=== PATIENT | male | born 1940 | race African-American/Black ===

== ENCOUNTER 2022-10-20 08:14 | Emergency (ER) | payer BC, MEDICARE ==
[~2022-10-20] VITALS: Ht 175.3 cm; Wt 106.8 kg
[~2022-10-20 08:14] MED LIST: ALBU8.5H8 IH; ATEN-72 PO; ATOR10TA PO; FESO4TAB PO; FINA-27 PO; FLUT1AER IH; HYDR-309 PO; IBUP-1492 PO; IPRA6S NASAL; ISON300 PO; METF-1211 PO; MONT-35 PO; NIFE90TA45 PO; NIFE90TA91 PO; PANT-31 PO; PYRI-12 PO; TAMS-13 PO; VALS160T2 PO
[2022-10-20] MEDS ORDERED: TRANEXAMIC ACID 1,000 MG/10 ML VIAL TP ONE (08:45)
[2022-10-20] MEDS ORDERED: PHENYLEPHRINE HCL 0.5% 15 ML NASAL SPRAY NASAL ONE (08:45)
[2022-10-20] MEDS ORDERED: SILVER NITRATE APPLICATOR 1 EA STICK TP ONE (09:30)
[2022-10-20 09:41] VITALS: BP 128/80
== END 2022-10-20 11:05 | disposition home or self-care (01) ==
LOC: EMS 08:27
DX: R04.0 Epistaxis (principal); E11.9 Type 2 diabetes mellitus without complications; I10 Essential (primary) hypertension; Z98.890 Other specified postprocedural states; Z88.8 Allergy status to other drugs, medicaments and biological substances
CPT/HCPCS: 99284; 82962; 30901; J3490

== ENCOUNTER 2022-11-10 16:41 | Emergency (ER) | payer MEDICARE ==
[~2022-11-10] VITALS: Ht 175.3 cm; Wt 84.0 kg
[~2022-11-10 16:41] MED LIST changes: -HYDR-309 PO; -IBUP-1492 PO; -NIFE90TA45 PO
[2022-11-10] MEDS ORDERED: OXYMETAZOLINE HCL 0.05% 15 ML NASAL SPRAY NASAL ONE (17:15)
[2022-11-10] MEDS ORDERED: SODIUM CHLORIDE 0.9% 1,000 ML IV ONE (18:00)
[2022-11-10 18:08] LABS: BASOPHILS % (AUTO) 0.9 % (0.0-2.0); EOSINOPHILS % (AUTO) 4.4 % (1.0-6.0); HEMATOCRIT 36.5 % (41-53); HEMOGLOBIN 11.8 g/dL (13.5-17.5); LYMPHOCYTES # (AUTO) 1.8 K/uL (1.0-4.8); LYMPHOCYTES % (AUTO) 28.5 % (22.0-44.0); MEAN CORPUSCULAR HEMOGLOBIN 28.6 pg (26.0-34.0); MEAN CORPUSCULAR HGB CONC 32.2 G/dL (31.0-37.0); MEAN CORPUSCULAR VOLUME 89 fL (80-100); MONOCYTES # (AUTO) 0.7 K/uL (0.1-1.0); MONOCYTES % (AUTO) 10.8 % (2.0-9.0); NEUTROPHILS # (AUTO) 3.5 K/uL (1.8-7.7); NEUTROPHILS % (AUTO) 55.4 % (40.0-70.0); PLATELET COUNT (AUTO) 255 K/uL (150-450); RED BLOOD CELL COUNT(AUTO) 4.12 MIL/uL (4.50-5.90); RED CELL DISTRIBUTION WIDTH 14.1 % (11.5-14.5)
[2022-11-10 18:21] LABS: CALCIUM, TOTAL 9.6 mg/dL (8.8-10.5); CREATININE 2.25 mg/dL (0.60-1.30); POTASSIUM 3.6 mmol/L (3.5-5.1)
[2022-11-10 18:25] LABS: PROTHROMBIN TIME 10.3 SEC (9.4-11.6)
[2022-11-10 18:27] LABS: ALBUMIN 3.5 g/dL (3.4-5.0); BILIRUBIN,TOTAL 0.3 mg/dL (0.1-1.0); TOTAL PROTEIN, SERUM 7.6 g/dL (6.4-8.2)
[2022-11-10] MEDS ORDERED: BENZOCAINE/MENTHOL LOZENGE PO ONE (21:30)
[2022-11-10 21:40] VITALS: BP 161/85
[2022-11-10 21:46] LABS: BASOPHILS % (AUTO) 0.6 % (0.0-2.0); EOSINOPHILS % (AUTO) 2.2 % (1.0-6.0); HEMATOCRIT 36.4 % (41-53); HEMOGLOBIN 11.7 g/dL (13.5-17.5); LYMPHOCYTES # (AUTO) 1.7 K/uL (1.0-4.8); LYMPHOCYTES % (AUTO) 21.1 % (22.0-44.0); MEAN CORPUSCULAR HEMOGLOBIN 28.3 pg (26.0-34.0); MEAN CORPUSCULAR HGB CONC 32.1 G/dL (31.0-37.0); MEAN CORPUSCULAR VOLUME 88 fL (80-100); MONOCYTES # (AUTO) 0.8 K/uL (0.1-1.0); MONOCYTES % (AUTO) 9.7 % (2.0-9.0); NEUTROPHILS # (AUTO) 5.4 K/uL (1.8-7.7); NEUTROPHILS % (AUTO) 66.4 % (40.0-70.0); PLATELET COUNT (AUTO) 254 K/uL (150-450); RED BLOOD CELL COUNT(AUTO) 4.13 MIL/uL (4.50-5.90); RED CELL DISTRIBUTION WIDTH 13.7 % (11.5-14.5)
== END 2022-11-11 00:40 | disposition short-term general hospital (02) ==
LOC: EMS 16:47
DX: R04.0 Epistaxis (principal); E11.9 Type 2 diabetes mellitus without complications; I10 Essential (primary) hypertension; Z88.0 Allergy status to penicillin
CPT/HCPCS: 99285; 96360; 80053; 82962; 84484; 85025; 85610; 85730; 86850; 86900; 86901; 36415; J7030

== ENCOUNTER 2022-12-01 11:13 | Emergency (ER) | payer MEDICARE ==
[~2022-12-01] VITALS: Ht 175.3 cm; Wt 95.5 kg
[2022-12-01 12:08] LABS: BASOPHILS % (AUTO) 0.6 % (0.0-2.0); EOSINOPHILS % (AUTO) 2.9 % (1.0-6.0); HEMATOCRIT 35.4 % (41-53); HEMOGLOBIN 11.4 g/dL (13.5-17.5); LYMPHOCYTES # (AUTO) 1.8 K/uL (1.0-4.8); LYMPHOCYTES % (AUTO) 27.3 % (22.0-44.0); MEAN CORPUSCULAR HEMOGLOBIN 28.5 pg (26.0-34.0); MEAN CORPUSCULAR HGB CONC 32.1 G/dL (31.0-37.0); MEAN CORPUSCULAR VOLUME 89 fL (80-100); MONOCYTES # (AUTO) 0.6 K/uL (0.1-1.0); MONOCYTES % (AUTO) 9.2 % (2.0-9.0); NEUTROPHILS # (AUTO) 3.9 K/uL (1.8-7.7); PLATELET COUNT (AUTO) 289 K/uL (150-450); RED BLOOD CELL COUNT(AUTO) 3.98 MIL/uL (4.50-5.90); RED CELL DISTRIBUTION WIDTH 14.1 % (11.5-14.5)
[2022-12-01 12:19] LABS: CALCIUM, TOTAL 9.9 mg/dL (8.8-10.5); CREATININE 2.58 mg/dL (0.60-1.30); POTASSIUM 3.7 mmol/L (3.5-5.1)
[2022-12-01 12:25] LABS: ALBUMIN 3.6 g/dL (3.4-5.0); BILIRUBIN,TOTAL 0.5 mg/dL (0.1-1.0); TOTAL PROTEIN, SERUM 7.7 g/dL (6.4-8.2)
[2022-12-01] MEDS ORDERED: PHENYLEPHRINE HCL 1% 15 ML NASAL SPRAY NASAL ONE (12:45)
[2022-12-01] MEDS ORDERED: FLUT16H NASAL (12:50)
[2022-12-01] MEDS ORDERED: OMEP20CA12 PO (12:50)
[2022-12-01] MEDS ORDERED: VALS1TAB77 PO (12:50)
[2022-12-01] MEDS ORDERED: CETI10TA58 PO (12:50)
[2022-12-01] MEDS ORDERED: ROSU10TA72 PO (12:50)
[2022-12-01] MEDS ORDERED: BENZ200C53 PO (12:50)
[2022-12-01] MEDS ORDERED: ASPI-1444 PO (12:50)
[2022-12-01] MEDS ORDERED: AMLO5TAB66 PO (12:50)
[2022-12-01] MEDS ORDERED: CEPH-558 PO (15:51)
[2022-12-01 16:37] VITALS: BP 123/69
== END 2022-12-01 16:44 | disposition home or self-care (01) ==
LOC: EMS 11:31
DX: R04.0 Epistaxis (principal); E11.9 Type 2 diabetes mellitus without complications; I10 Essential (primary) hypertension
CPT/HCPCS: 80053; 85025; 99283

== ENCOUNTER 2022-12-04 10:05 | Emergency (ER) | payer MEDICARE ==
[~2022-12-04] VITALS: Ht 175.3 cm; Wt 108.2 kg
[~2022-12-04 10:05] MED LIST changes: -ALBU8.5H8 IH; +AMLO5TAB66 PO; +ASPI-1444 PO; -ATOR10TA PO; +BENZ200C53 PO; +CEPH-558 PO; +CETI10TA58 PO; +FLUT16H NASAL; -IPRA6S NASAL; -NIFE90TA91 PO; +OMEP20CA12 PO; -PANT-31 PO; +ROSU10TA72 PO; -VALS160T2 PO; +VALS1TAB77 PO
[2022-12-04 12:57] VITALS: BP 125/66
== END 2022-12-04 14:07 | disposition home or self-care (01) ==
LOC: EMS 10:12
DX: R04.0 Epistaxis (principal); E11.9 Type 2 diabetes mellitus without complications; I10 Essential (primary) hypertension
CPT/HCPCS: 99281; Z7502

== ENCOUNTER 2022-12-28 18:36 | Emergency (ER) | payer MEDICARE ==
[~2022-12-28] VITALS: Ht 177.8 cm; Wt 97.7 kg
[2022-12-28] MEDS ORDERED: OXYMETAZOLINE HCL 0.05% 15 ML NASAL SPRAY NASAL ONE (18:45)
[2022-12-28] MEDS ORDERED: TRANEXAMIC ACID 1,000 MG/10 ML VIAL TP ONE (19:15)
[2022-12-28 19:37] LABS: BASOPHILS % (AUTO) 0.8 % (0.0-2.0); EOSINOPHILS % (AUTO) 5.3 % (1.0-6.0); HEMATOCRIT 34.5 % (41-53); HEMOGLOBIN 11.5 g/dL (13.5-17.5); LYMPHOCYTES # (AUTO) 1.9 K/uL (1.0-4.8); LYMPHOCYTES % (AUTO) 28.1 % (22.0-44.0); MEAN CORPUSCULAR HEMOGLOBIN 29.7 pg (26.0-34.0); MEAN CORPUSCULAR HGB CONC 33.4 G/dL (31.0-37.0); MEAN CORPUSCULAR VOLUME 89 fL (80-100); MONOCYTES # (AUTO) 0.6 K/uL (0.1-1.0); MONOCYTES % (AUTO) 8.7 % (2.0-9.0); NEUTROPHILS # (AUTO) 3.9 K/uL (1.8-7.7); NEUTROPHILS % (AUTO) 57.1 % (40.0-70.0); PLATELET COUNT (AUTO) 283 K/uL (150-450); RED BLOOD CELL COUNT(AUTO) 3.88 MIL/uL (4.50-5.90); RED CELL DISTRIBUTION WIDTH 14.1 % (11.5-14.5)
[2022-12-28 19:45] LABS: CALCIUM, TOTAL 9.9 mg/dL (8.8-10.5); CREATININE 2.28 mg/dL (0.60-1.30); POTASSIUM 3.2 mmol/L (3.5-5.1)
[2022-12-28 19:52] LABS: ALBUMIN 3.7 g/dL (3.4-5.0); BILIRUBIN,TOTAL 0.3 mg/dL (0.1-1.0); TOTAL PROTEIN, SERUM 7.8 g/dL (6.4-8.2)
[2022-12-28 19:53] LABS: PROTHROMBIN TIME 10.5 SEC (9.4-11.6)
[2022-12-28] MEDS ORDERED: POTASSIUM CHLORIDE 20 MEQ ER TABLET PO ONE (21:15)
[2022-12-28 22:06] VITALS: BP 136/60
== END 2022-12-28 22:29 | disposition short-term general hospital (02) ==
LOC: EMS 18:37
DX: R04.0 Epistaxis (principal); E11.9 Type 2 diabetes mellitus without complications; I10 Essential (primary) hypertension; Z98.890 Other specified postprocedural states
CPT/HCPCS: 99291; 30906; 30903; 80053; 85025; 85610; 85730; 36415; J3490